=== PATIENT | male | born 1975 | race Two or more races ===

== ENCOUNTER → 2021-04-20 19:24 | Outpatient (CLI) | payer SELFPAY | PROVIDERS: Visit Provider Nurse Practitioner Family | DX: Z20.822 Contact with and (suspected) exposure to COVID-19 (principal) | CPT/HCPCS: U0003 ==

== ENCOUNTER → 2022-01-14 10:59 | Outpatient (CLI) | payer SELFPAY ==
--- NOTE | 2022-01-14 11:02 | US_ITS ---
FINAL REPORT CLINICAL HISTORY: DISORDER OF PITUITARY GLAND,HYPOTHYROIDISM FINDINGS: THYROID ULTRASOUND Sonographic images of the thyroid was obtained. The right lobe of the thyroid measures 4.3 x 2.7 x 1.2 cm. The left lobe of the thyroid measures 4.1 x 1.7 x 1.3 cm. The isthmus measures 4 mm. There are tiny solid and hypoechoic appearing nodules bilaterally: Largest nodule is in the right mid lobe measuring 6 x 6 x 4 mm, TI-RADS 4. There is a 2nd right lobe nodule measuring 7 x 5 x 2 mm, TI-RADS 4. There is a left lobe nodule measuring 3 x 3 x 2 mm, TI-RADS 4. IMPRESSION: TI-RADS 4 lesions less than 1 cm. No follow-up is required. Reviewed, Interpreted and Dictated by Shankar Montilla MD Transcribed by Farrah Livingston Authenticated by Shankar Montilla MD on 01/14/2022 02:58:15 PM [facility]
== END ==
PROVIDERS: PCP Nurse Practitioner Family; Visit Provider Nurse Practitioner Family
DX: E02 Subclinical iodine-deficiency hypothyroidism (principal); R76.0 Raised antibody titer
CPT/HCPCS: 76536

== ENCOUNTER → 2022-04-12 08:49 | Outpatient (CLI) | payer SELFPAY ==
--- NOTE | 2022-04-12 08:57 | MR_ITS ---
FINAL REPORT CLINICAL HISTORY: HEADACHE/DIZZINESS. TINNITUS WITH FEELING LIKE HES GOING TO PASS OUT. DIZZINESS [id number] BUT WORSE [id number]. OCCIPITAL HEAD NUMBNESS. HEADACHE. FINDINGS: Multiplanar MR imaging of the brain was performed without contrast. There is no evidence of intracranial hemorrhage or mass. The ventricular size is normal. There is no evidence of shift of the midline structures. No area of restricted diffusion is identified. The posterior fossa and brainstem have an unremarkable appearance. Normal major vessel vascular flow voids are seen. Limited images of the paranasal sinuses reveal mucosal thickening throughout consistent with widespread sinusitis. IMPRESSION: Unremarkable brain with no focal abnormality identified. Findings consistent with widespread sinusitis. Reviewed, Interpreted and Dictated by Manuel Crabtree III, MD Transcribed by Francheska Ramos Authenticated by Manuel Crabtree III, MD on 04/12/2022 10:54:29 AM [facility]
== END ==
PROVIDERS: PCP Nurse Practitioner Family; Visit Provider Nurse Practitioner Family
DX: R51.9 Headache, unspecified (principal); R42 Dizziness and giddiness
CPT/HCPCS: 70551

== ENCOUNTER 2022-04-16 21:44 | Emergency (ER) | payer OTHER, SELFPAY ==
[2022-04-16 21:46] VITALS: BP 132/82; PULSE 80; RESP 18; TEMP 36.8; O2SAT 96; BMI 32.2
--- NOTE | 2022-04-16 22:08 | XR_ITS ---
PROCEDURE INFORMATION: Exam: XR Left Hand Exam date and time: 04/16/2022 10:13 PM Age: 47 years old Clinical indication: Injury or trauma; Other: Screw into middle left finger. Work related; Puncture; Patient HX: Screw driven into middle finger. ; Additional info: Injury to second digit TECHNIQUE: Imaging protocol: XR Left hand. Views: 3 or more views. COMPARISON: No relevant prior studies available. FINDINGS: Bones/joints: No fracture or dislocation. Soft tissues: No radiopaque foreign body or soft tissue gas. IMPRESSION: No acute findings.
--- NOTE | 2022-04-16 22:20 | HMH.EDUPEXT ---
ED Disposition Clinical Impression: Tinnitus of left ear Open wound of finger Qualifiers: Encounter type: initial encounter Qualified Code(s): S61.209A - Unspecified open wound of unspecified finger without damage to nail, initial encounter Disposition: Home, Self-Care Condition on Discharge: Good Instructions: DI for Puncture Wound Additional Instructions: use meds and see pcp for follow up Prescriptions: cephALEXin [cephALEXin 500mg capsule*] 500 mg PO TID #30 cap Transmission Status: Pending to [id number] clindamycin HCL [Clindamycin HCl] 300 mg PO TID #30 cap Transmission Status: Pending to [id number] Referrals: Anne Lazo APRN [Primary Care Provider] - - Critical Care Critical Care Time: No Attestation: On 04/16/22, the high probability of a clinically significant, sudden or life threatening deterioration of the following system(s) required my full and direct attention, intervention and personal management. The time I documented below is in addition to time spent performing reported procedures but includes the following listed in this critical care notation. Medical Decision Making - Medical Records Medical records reviewed: Yes: I reviewed the patient's medical records. - Toby Inquiry Pt receiving controlled substance: No Vital Signs: 04/16/22 21:46 Temperature 98.3 F Temperature Source Oral Pulse Rate [Left] 80 Respiratory Rate 18 Blood Pressure [Right Arm] 132/82 Blood Pressure Mean [Right Arm] 98 02 Sat by Pulse Oximetry 96 Oxygen Delivery Method Room Air - Lab Data Lab results reviewed: Yes: I reviewed the patient's lab results. Orders (Tests/Meds): ORDERS Category Date Time Status XR hand LT min 3V Stat Exams 04/16/22 22:08 Taken - Radiology Data #1 Image(s): Hand Image Reviewed: Yes I have reviewed radiologist's interpretation Preliminary Findings: No Fracture Seen Medical Decision Narrative: will treat with abx at this time and ask pt to see pcp Upper Extremity HPI - General Chief Complaint: Extremity Injury, Upper Stated Complaint: AO 04/16@1300 drilled thur L Index finger Time Seen by Provider: 04/16/22 22:00 Mode of Arrival: Ambulatory Source of Information: Patient, Medical Record Limitations: No Limitations Description of Symptoms (Recalled from ER Triage Doc. by RN): pt drilled a screw through the tip of his left second digit pt called his dr and was directed to get a tetanus shot at [facility] pt states the screw didnt hit his bone but has been having throbbing pain in the finger 05/03 and 08/03 when it his something - History of Present Illness HPI narrative: drilled screw into distal fingernail about 10 hrs ago with local pain - middle finger - also for 4 months had lt ear tinnitus and dizzyness -has been seen at - nonspecific w/u complaint: injury to: left, finger Onset (ago): hour(s) Other Extremity Injury: Left: fingers Other injuries: none Handedness: right Place: work Context: other (drilled screw in to distal finger ) Associated symptoms: denies other symptoms - Related Data Previous Rx's Medication Instructions Recorded albuterol sulfate 90 mcg/actuation 2 puff INHALATION Q6H PRN 30 Days 04/20/21 aerosol inhaler #6.7 g prednisone 20 mg tablet 20 mg PO BID 5 Days #10 tab 04/20/21 cephALEXin [cephALEXin 500mg 500 mg PO TID #30 cap 04/16/22 capsule*] clindamycin HCL [Clindamycin HCl] 300 mg PO TID #30 cap 04/16/22 Allergies Allergy/AdvReac Type Severity Reaction Status Date / Time No Known Allergies Allergy Verified 04/20/21 15:22 [facility] History - Hepatitis A Screen Attestation statement:: This patient has been screened for Hepatitis A risk factors. I have reviewed the patient's past medical history: Yes Other Medical History: Reports: Arthritis Other Surgeries: Yes: No Previous Surgery, Other Amputation: No Fractures: No Comment: Back surgery - Social History Smoking S
--- NOTE | 2022-04-16 22:57 | PC.NURSE ---
Pt finger cleaned and wrapped
[2022-04-16 23:00] VITALS: BP 121/74; PULSE 79; RESP 18; TEMP 36.8; O2SAT 97
== END 2022-04-16 23:01 | disposition home or self-care (01) ==
PROVIDERS: Emergency Provider Emergency Medicine; PCP Nurse Practitioner Family
DX: S61.209A Unspecified open wound of unspecified finger without damage to nail, initial encounter (principal); H93.12 Tinnitus, left ear; M19.90 Unspecified osteoarthritis, unspecified site
CPT/HCPCS: 73130; 99283

== ENCOUNTER 2022-08-27 12:13 | Emergency (ER) | payer OTHER, SELFPAY ==
[2022-08-27 12:15] VITALS: BP 130/76; PULSE 84; RESP 16; TEMP 36.6; O2SAT 98; BMI 35.5
--- NOTE | 2022-08-27 12:27 | XR_ITS ---
FINAL REPORT CLINICAL HISTORY: dizziness COMPARISON: January 22, 2017 FINDINGS: A single portable view of the chest was obtained. The heart size and pulmonary vascularity are within normal limits. The mediastinum is within normal limits. No acute pulmonary abnormality is identified. The bony thorax is intact. IMPRESSION: No active cardiopulmonary disease. Reviewed, Interpreted and Dictated by Manuel Crabtree III, MD Transcribed by Farrah Livingston Authenticated and . [facility]
[2022-08-27 12:48] LABS: Microscopic, Urine URINE MICROSCOPIC (MICROSCOPIC)
--- NOTE | 2022-08-27 12:48 | ECG_ITS ---
APPROVED REPORT Exam: Resting ECG HR:67 bpm ECG Measurements Heart Rate 67 AXES FL 147 P 26 QRSd 116 QRS 13 QT 389 T 30 QTc 404 Conclusion SINUS RHYTHM INCOMPLETE RIGHT BUNDLE BRANCH BLOCK [90+ ms QRS DURATION, TERMINAL R IN V1/V2, 40+ ms S IN I/aVL/V4/V5/V6] NONSPECIFIC ST ELEVATION [0.05+ mV ST ELEVATION] BORDERLINE ECG UNCONFIRMED REPORT Electronically signed by : Dave Kidd MD 08/27/2022 19:57:49
[2022-08-27 12:49] LABS: Appearance,Urine CLEAR (Clear); Bilirubin,Urine Negative (Negative); Blood, Urine TRACE-L (Negative); Color,Urine YELLOW (Yellow); Glucose,Urine (UA) Negative (Negative); Ketones,Urine Negative (Negative); Leukocyte Esterase,Urine Negative (Negative); Nitrate,Urine Negative (Negative); PH,Urine 6.5 (5.0-8.5); Protein,Urine Negative (Negative); Urobilinogen,Urine 0.2 EU/dl (0.2)
[2022-08-27 12:51] LABS: Basophils # 0.1 K/mm3 (0-0.2); Basophils % 1.8 % (0.1-2.0); Eosinophils # 0.2 K/mm3 (0.0-0.4); Eosinophils % 3.8 % (0.1-12.0); Hematocrit 48.7 % (42.0-52.0); Hemoglobin 16.2 g/dL (14.1-18.0); Lymphocytes # 2.1 K/mm3 (0.7-4.5); Lymphocytes % 32.7 % (10-50); Mean Corpuscular HGB Conc 33.3 g/dL (31.8-35.4); Mean Corpuscular Hemoglobin 30.3 pg (27.0-31.2); Mean Corpuscular Volume 90.8 fl (80-94); Mean Platelet Volume 8.4 fl (7.4-10.4); Monocytes # 0.3 K/mm3 (0.1-1.0); Monocytes % 5.1 % (1.7-9.3); Neutrophils # 3.7 K/mm3 (1.8-7.8); Neutrophils % 56.7 % (37.0-80.0); Platelet Count 261 K/mm3 (142-424); Red Blood Count 5.36 M/mm3 (4.60-6.20); Red Cell Distribution Width 13.2 % (11.5-17.5); White Blood Count 6.5 K/mm3 (4.8-10.8)
--- NOTE | 2022-08-27 12:55 | PC.NURSE ---
pt up ambulatory to bathroom pt unsteady gait.
[2022-08-27 13:02] LABS: Bacteria,Urine Trace /lpf; RBC,Urine Occasional #/hpf (0-3)
[2022-08-27 13:03] LABS: Squamous Epithelial Cell,Urine Occasional #/hpf (0-5)
[2022-08-27 13:04] LABS: Alanine Aminotransferase 45 U/L (12-78); Albumin Level 4.4 g/dl (3.5-5.0); Albumin/Globulin Ratio 1.4 (1.1-1.8); Alkaline Phosphatase 81 U/L (38-126); Anion Gap 15.8 mEq/L (5-15); Aspartate Amino Transferase 44 U/L (17-59); Bilirubin,Total 0.3 mg/dl (0.2-1.3); Blood Urea Nitrogen 9 mg/dl (9-20); Calcium 8.3 mg/dl (8.4-10.2); Carbon Dioxide 25 mmol/L (22.0-30.0); Chloride 101 mmol/L (98-107); Creatinine Clearance Estimated 157 mL/min (50-200); Estimated Glomerular Filt Rate 121 ml/min (>60); GFR (African American) 146 ML/MIN (>60); Globulin 3.1 g/dL (1.3-3.2); Glucose 120 mg/dl (74-100); Potassium 3.8 mmoL/L (3.5-5.1); Sodium 138 mmol/L (136-145); Total Protein,Serum 7.5 g/dl (6.3-8.2)
--- NOTE | 2022-08-27 13:05 | PC.NURSE ---
pt given warm blanket
--- NOTE | 2022-08-27 13:06 | PC.NURSE ---
rounded on pt no needs at this time
[2022-08-27 13:17] LABS: Troponin I < 0.01 ng/ml (0.00-0.034)
--- NOTE | 2022-08-27 13:49 | HMH.EDGENADL ---
Discharge Plan Disposition Patient Disposition: Home, Self-Care Condition: Good Prescriptions Prescriptions: New meclizine 25 mg tablet 25 mg PO TID PRN (Reason: Vertigo) Qty: 15 0RF Referrals Follow up/Referrals: Anne Lazo APRN [Primary Care Provider] - See instructions Dede Griffin MD [Staff Physician] - See instructions Activity Restrictions/Add. Instructions Additional Instructions/Restrictions: Meclizine as prescribed. Avoid eucalyptus tea. Follow-up with neurology, Dr. Griffin, call for appointment. Clinical Impressions Clinical Impression: Dizziness Instructions Patient Instructions: DI for Dizziness-Nonvertigo Discharge ED Provider: Thien Palma General Adult HPI General Chief complaint: Weakness Stated complaint: dizzy, [place], back pain Time Seen by Provider: 08/27/22 13:46 Mode of Arrival: Ambulatory Source of Information: Patient Limitations: No Limitations Description of Symptoms (Recalled from ER Triage Doc. by RN): to ed per pvt car with c/o headache x 4-5 days, lower back pain starting lastnight and c/o dizziness room spinning x 4-5 days with hx of same x 1 year has been seen multiple times at ed and seen by specialist for vertigo approx 3-4 months ago. pt denies fever. c/o difficulty ambulating due to dizziness History of Present Illness HPI narrative: Patient complains of dizziness. He describes feeling like the room is spinning and feeling like he is going to go down whenever he stands up. He has had symptoms like this ever since last year. He states he has seen his primary care provider and has been referred to [facility] where he has seen a specialist for dizziness. Testing has been negative. He has been referred to a neurologist but cannot get an appointment till December 2022. Symptoms now are the same as what he has had previously. His symptoms were associated with an occipital headache and ringing in the ears. He thinks he has been treated with meclizine in the past, he does not recall whether it helped, it has been 5 months ago or so He is also concerned because last evening he had 2 cups of eucalyptus tea. A tea made with eucalyptus leaves obtained at a [employer] grocery. He says he is read on the Internet where this can cause you to get sick. He shows me a picture of the bag of tea leaves, which are a label product from a grocery store and are indicated for making eucalyptus tea. He says that thinking back over the past year he thinks that previous episodes of dizziness might have been associated with drinking eucalyptus tea as well. Related Data Previous Rx's Medication Instructions Recorded meclizine 25 mg tablet 25 mg PO TID PRN Vertigo #15 tabs 08/27/22 Allergies Allergy/AdvReac Type Severity Reaction Status Date / Time No Known Allergies Allergy Verified 04/20/21 15:22 PFSH PFSH Social History Smoking Status: Never smoker alcohol intake: never substance use type: denies use current occupational status: employed Travel in the last 8 weeks: None household members: family housing: house ROS Obtained: Yes Systems reviewed as appropriate & no additional complaints except as documented Constitutional Constitutional: Denies fever(s), Reports headache(s) and Denies weakness ENT Ears, Nose, Mouth, and Throat: Reports dizziness, Reports headache(s), Reports tinnitus and Reports vertigo Cardiovascular Cardiovascular: Denies chest pain Respiratory Respiratory: Denies shortness of breath and Denies cough Gastrointestinal Gastrointestingal: Denies abdominal pain, constipation, diarrhea or vomiting Genitourinary Male Genitourinary: Denies difficulty urinating and Denies flank pain Musculoskeletal Musculoskeletal: Reports back pain and Denies numbness Neurologic Neurologic: Reports dizziness, Reports headache(s), Denies numbness, Reports vertigo and Denies weakness Physical Exam General General appearance: alert and in
[2022-08-27 14:15] VITALS: BP 118/65; PULSE 68; RESP 16; TEMP 36.6; O2SAT 98
[2022-08-27 14:19] LABS: Coronavirus 19, PCR Not Detected (NotDetected); Influenza A, PCR Not Detected (NotDetected); Influenza B, PCR Not Detected (NotDetected)
== END 2022-08-27 14:27 | disposition home or self-care (01) ==
PROVIDERS: Emergency Provider Emergency Medicine; PCP Nurse Practitioner Family
DX: R42 Dizziness and giddiness (principal); R53.1 Weakness; R51.9 Headache, unspecified; M54.9 Dorsalgia, unspecified
CPT/HCPCS: 71045; 80053; 81001; 84484; 85025; 93005; 96365; 99285; C9803; U0003; U0005

== ENCOUNTER 2022-10-07 03:16 | Emergency (ER) | payer OTHER, SELFPAY ==
[2022-10-07 03:17] VITALS: BP 108/60; PULSE 60; RESP 17; TEMP 36.7; O2SAT 98; BMI 28.7
--- NOTE | 2022-10-07 03:30 | ECG_ITS ---
APPROVED REPORT Exam: Resting ECG HR:51 bpm ECG Measurements Heart Rate 51 AXES [place] 156 P 11 QRSd 118 QRS 33 QT 421 T 19 QTc 397 Conclusion SINUS BRADYCARDIA MODERATE INTRAVENTRICULAR CONDUCTION DELAY [110+ ms QRS DURATION] BORDERLINE ECG UNCONFIRMED REPORT Electronically signed by : Dave Kidd MD 10/07/2022 21:11:05
--- NOTE | 2022-10-07 03:38 | PC.NURSE ---
Dr. Meeks at
[2022-10-07 03:49] VITALS: BMI 29.0
[2022-10-07 03:50] VITALS: BP 115/68; BP 117/77; BP 123/77; PULSE 56; PULSE 60
[2022-10-07 03:57] LABS: Appearance,Urine CLEAR (Clear); Bilirubin,Urine Negative (Negative); Blood, Urine TRACE-I (Negative); Color,Urine YELLOW (Yellow); Glucose,Urine (UA) Negative (Negative); Ketones,Urine Negative (Negative); Leukocyte Esterase,Urine Negative (Negative); Microscopic, Urine URINE MICROSCOPIC (MICROSCOPIC); Nitrate,Urine Negative (Negative); PH,Urine 5.5 (5.0-8.5); Protein,Urine Negative (Negative); Specific Gravity, Urine >= 1.030 (1.005-1.030); Urobilinogen,Urine 0.2 EU/dl (0.2)
[2022-10-07 04:00] LABS: Squamous Epithelial Cell,Urine Occasional #/hpf (0-5)
[2022-10-07 04:01] LABS: Amorphous Sediment,Urine Trace /lpf
[2022-10-07 04:21] LABS: Basophils # 0.1 K/mm3 (0-0.2); Basophils % 1.1 % (0.1-2.0); Eosinophils # 0.3 K/mm3 (0.0-0.4); Eosinophils % 4.4 % (0.1-12.0); Hematocrit 44.8 % (42.0-52.0); Hemoglobin 14.8 g/dL (14.1-18.0); Lymphocytes # 3.2 K/mm3 (0.7-4.5); Lymphocytes % 44.4 % (10-50); Mean Corpuscular Hemoglobin 29.8 pg (27.0-31.2); Mean Corpuscular Volume 90.3 fl (80-94); Mean Platelet Volume 8.7 fl (7.4-10.4); Monocytes # 0.4 K/mm3 (0.1-1.0); Monocytes % 5.9 % (1.7-9.3); Neutrophils # 3.2 K/mm3 (1.8-7.8); Neutrophils % 44.2 % (37.0-80.0); Platelet Count 259 K/mm3 (142-424); Red Blood Count 4.96 M/mm3 (4.60-6.20); Red Cell Distribution Width 13.2 % (11.5-17.5); White Blood Count 7.2 K/mm3 (4.8-10.8)
[2022-10-07 04:34] LABS: Chloride 101 mmol/L (98-107); Sodium 140 mmol/L (136-145)
[2022-10-07 04:35] LABS: Potassium 3.7 mmoL/L (3.5-5.1)
[2022-10-07 04:37] LABS: Alanine Aminotransferase 39 U/L (12-78); Albumin Level 4.4 g/dl (3.5-5.0); Alkaline Phosphatase 72 U/L (38-126); Aspartate Amino Transferase 40 U/L (17-59); Bilirubin,Total 0.3 mg/dl (0.2-1.3); Blood Urea Nitrogen 13 mg/dl (9-20); Creatinine Clearance Estimated 117 mL/min (50-200); Estimated Glomerular Filt Rate 90 ml/min (>60); GFR (African American) 109 ML/MIN (>60)
[2022-10-07 04:38] LABS: Albumin/Globulin Ratio 1.5 (1.1-1.8); Anion Gap 12.7 mEq/L (5-15); Calcium 8.9 mg/dl (8.4-10.2); Carbon Dioxide 30 mmol/L (22.0-30.0); Glucose 96 mg/dl (74-100); Total Protein,Serum 7.4 g/dl (6.3-8.2)
[2022-10-07 04:52] LABS: Troponin I < 0.01 ng/ml (0.00-0.034)
--- NOTE | 2022-10-07 04:58 | PC.NURSE ---
Pt resting in bed. No needs or complaints voiced at this time.
--- NOTE | 2022-10-07 05:25 | HMH.EDDIZZ ---
Discharge Plan Disposition Patient Disposition: Home, Self-Care Prescriptions Prescriptions: No Action meclizine 25 mg tablet 25 mg PO TID PRN (Reason: Vertigo) Qty: 15 0RF Referrals Follow up/Referrals: Anne Lazo APRN [Primary Care Provider] - See instructions Clinical Impressions Clinical Impression: Dizziness Instructions Patient Instructions: Dizziness, Nonvertigo Discharge ED Provider: Jaime Meeksy HPI General Chief Complaint: Dizziness Stated Complaint: Dizzy Time Seen by Provider: 10/07/22 05:25 Mode of Arrival: Family Vehicle Source of Information: Patient and Medical Record Limitations: No Limitations Description of Symptoms (Recalled from ER Triage Doc. by RN): Pt c/o dizziness and nausea. Denies any headache, v/d, or fever. Denies any trauma or falls. Pt stated he wanted to History of Present Illness HPI Narrative: dizzyness assoc with nausea x 1 day with hx of same - no trauma or viral illness and no chest pain MD complaint: dizziness Onset (ago): day(s) Timing: awoke with symptoms Description: lightheadedness History of similar episodes: Yes History of trauma: No Severity: moderate Exacerbating factors: nothing Associated symptoms: denies other symptoms Related Data Previous Rx's Medication Instructions Recorded meclizine 25 mg tablet 25 mg PO TID PRN Vertigo #15 tabs 08/27/22 Allergies Allergy/AdvReac Type Severity Reaction Status Date / Time No Known Allergies Allergy Verified 04/20/21 15:22 PFSH PFSH Social History Smoking Status: Never smoker alcohol intake: never substance use type: denies use current occupational status: employed Travel in the last 8 weeks: None household members: family housing: house ROS Obtained: Yes All systems reviewed & no additional complaints except as documented Physical Exam General General appearance: alert Head Head exam: normocephalic Eye Eye exam: Present PERRL, EOMI and nystagmus ENT ENT exam: Present mucous membranes moist Neck Neck exam: Present trachea midline Respiratory Respiratory exam: Absent respiratory distress Cardiovascular Cardiovascular exam: Present regular rate and systolic murmur Abdominal Exam Abdominal exam: Present soft Extremities Exam Extremities exam: Present full ROM Neurological Exam Neurological exam: Present alert, oriented X3 and CN II-XII intact; Absent motor sensory deficit Psychiatric Psychiatric exam: Present normal affect Skin Skin exam: Absent rash Medical Decision Making Medical Records Medical records reviewed: Yes I reviewed the patient's medical records. Toby Inquiry Pt receiving controlled substance: No Vital Signs: 10/07/22 03:50 10/07/22 03:17 Temperature 98.0 F Temperature Source Oral Pulse Rate [Orthostatic Lying] 56 L Pulse Rate [Orthostatic Sitting] 56 L Pulse Rate [Orthostatic Standing] 60 Pulse Rate [Right] 60 Respiratory Rate 17 Blood Pressure [Orthostatic Lying Right Arm] 115/68 Blood Pressure [Orthostatic Sitting Right Arm] 123/77 Blood Pressure [Orthostatic Standing Right Arm] 117/77 Blood Pressure [Right Arm] 108/60 L Blood Pressure Mean [Right Arm] 76 Blood Pressure Source [Right Arm] Automatic Cuff 02 Sat by Pulse Oximetry 98 Oxygen Delivery Method Room Air Lab Data Lab results reviewed: Yes I reviewed the patient's lab results. Lab Results 10/07/22 03:36: Urine Color Yellow, Urine Appearance Clear, Urine pH 5.5, Ur Specific [place] >= 1.030, Urine Protein Negative, Urine Glucose (UA) Negative, Urine Ketones Negative, Urine Blood Trace-i, Urine Nitrate Negative, Urine Bilirubin Negative, Urine Urobilinogen 0.2, Ur Leukocyte Esterase Negative, Urine RBC 3-5, Ur Squamous Epith Cells Occasional, Amorphous Sediment Trace 10/07/22 04:00: WBC 7.2, RBC 4.96, Hgb 14.8, Hct 44.8, MCV 90.3, MCH 29.8, MCHC 33.0, RDW 13.2, Plt Count 259, MPV 8.7, Neut % (Auto) 44.2, Lymph % (Auto) 44.4, [place] % (Auto) 5.9, Eos %
[2022-10-07 07:05] LABS: Troponin I < 0.01 ng/ml (0.00-0.034)
[2022-10-07 07:14] VITALS: BP 94/62; PULSE 50; RESP 14; TEMP 36.7; O2SAT 93
== END 2022-10-07 07:31 | disposition home or self-care (01) ==
PROVIDERS: Emergency Provider Emergency Medicine; PCP Nurse Practitioner Family
DX: R42 Dizziness and giddiness (principal); R00.1 Bradycardia, unspecified; R11.0 Nausea; R01.1 Cardiac murmur, unspecified
CPT/HCPCS: 80053; 81001; 84484; 85025; 93005; 99284

== ENCOUNTER → 2023-04-10 15:11 | Outpatient (CLI) | payer SELFPAY ==
--- NOTE | 2023-04-10 15:23 | CT_ITS ---
FINAL REPORT TECHNIQUE: Pre-and postcontrast axial CT images of the abdomen and pelvis were obtained. Coronal reformatted images were also obtained and reviewed. This study was performed with techniques to keep radiation doses as low as reasonably achievable (ALARA). Individualized dose reduction techniques using automated exposure control or adjustment of mA and/or kV according to the patient's size were employed. CLINICAL HISTORY: LOWER ABDOMINAL PAIN, states it hurts most when he lays flat on his back. Pelvic area pain. FINDINGS: CT OF THE ABDOMEN AND PELVIS WITH AND WITHOUT CONTRAST Abdomen: There is mild bibasilar atelectasis.. The heart is normal in size. There is mild fatty infiltration of the liver. The gallbladder is partially collapsed with wall thickening as a nonspecific finding. The spleen is unremarkable. No adrenal mass is present. The pancreas has an unremarkable appearance. The kidneys are normal, without evidence of mass or hydronephrosis. The aorta is normal in caliber. There is no free fluid or adenopathy. No mass or abnormal fluid collection is seen. Pelvis: The appendix is normal. There is mild bladder wall thickening, likely inflammatory. No inflammatory process is seen. There is no evidence of mass or adenopathy. There is no evidence of bowel obstruction. Precontrast imaging demonstrates no evidence of nephrolithiasis. There are postoperative changes from fusion of L5-S1. There is mild anterolisthesis of L5 on S1. IMPRESSION: Mild bladder wall thickening, likely inflammatory. Fusion of L5-S1 with mild anterolisthesis of L5 on S1. Reviewed, Interpreted and Dictated by Manuel Crabtree III, MD Transcribed by Lin Spence Authenticated and [facility]
== END ==
PROVIDERS: PCP Nurse Practitioner Family; Visit Provider Nurse Practitioner Family
DX: R10.30 Lower abdominal pain, unspecified (principal)
CPT/HCPCS: 74170; Q9967

== ENCOUNTER 2023-08-28 03:47 | Emergency (ER) | payer SELFPAY ==
[2023-08-28 03:49] VITALS: BP 156/91; PULSE 68; RESP 16; TEMP 36.6; O2SAT 98; BMI 32.1
--- NOTE | 2023-08-28 03:57 | HMH.EDGENADL ---
Discharge Plan Disposition Patient Disposition: Home, Self-Care Prescriptions Prescriptions: New meclizine 25 mg tablet 25 mg PO QID PRN (Reason: dizziness) Qty: 30 0RF ondansetron HCl 4 mg tablet 4 mg PO Q8H PRN (Reason: nausea and vomiting) 5 Days Qty: 30 0RF No Action meclizine 25 mg tablet 25 mg PO TID PRN (Reason: Vertigo) Qty: 15 0RF Referrals Follow up/Referrals: Anne Lazo APRN [Primary Care Provider] - See instructions Activity Restrictions/Add. Instructions Additional Instructions/Restrictions: Please discontinue alcohol, caffeine, nicotine as this could be causing/worsening your symptoms. Recommend restriction of salt as excess salt can potentially worsen the fluid buildup in your ears that we think is causing your problems. Please take Tylenol and ibuprofen as needed for your headache. Please take meclizine and Zofran as needed for nausea vomiting and dizziness. Please follow-up with your primary care provider. Please return to the emergency department if you develop any new or worsening symptoms or become concerned for your health. 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 by RN): pt states he has been dizzy for a week. pt has had episodes of this in the past and seen pcp. History of Present Illness HPI narrative: 48-year-old male presents with intermittent dizziness and tinnitus. He reports that he has had these issues for the last couple of years, they are waxing and waning. He has been evaluated by ENT and neurology including MRI imaging of his brain last year. His work-up has always returned to normal per chart review and per patient. He reports that this most recent bout of vertigo started about a week ago and has been worsening. He reports its associated with ringing in both ears. He denies any significant vomiting, reports no numbness or weakness. No recent trauma. He reports an intermittent posterior headache as well. Related Data Previous Rx's Medication Instructions Recorded meclizine 25 mg tablet 25 mg PO TID PRN Vertigo #15 tabs 08/27/22 meclizine 25 mg tablet 25 mg PO QID PRN dizziness #30 tabs 08/28/23 ondansetron HCl 4 mg tablet 4 mg PO Q8H PRN nausea and 08/28/23 vomiting 5 days #30 tabs Allergies Allergy/AdvReac Type Severity Reaction Status Date / Time No Known Allergies Allergy Verified 04/20/21 15:22 [facility] Disclaimer: The information contained in this section may have been updated after the patient was seen, as this information can be updated by other users. Social History Smoking Status: Never smoker alcohol intake: never substance use type: denies use current occupational status: employed Travel in the last 8 weeks: None household members: family housing: house ROS Obtained: Yes All systems reviewed & no additional complaints except as documented Physical Exam General General appearance: alert and in no apparent distress Head Head exam: atraumatic and normocephalic Eye Eye exam: Present normal appearance, PERRL and EOMI; Absent nystagmus ENT ENT exam: Present normal oropharynx, TM's normal bilaterally and normal external ear exam Neck Neck exam: Present normal inspection and full ROM; Absent tenderness Chest Chest inspection: Present normal inspection and symmetric chest wall rise; Absent tenderness Respiratory Respiratory exam: Present normal lung sounds bilaterally; Absent respiratory distress Cardiovascular Cardiovascular exam: Present regular rate and normal rhythm Abdominal Exam Abdominal exam: Present soft; Absent distention, tenderness or guarding Extremities Exam Extremi
[2023-08-28 04:23] VITALS: BP 122/95; PULSE 86; RESP 18; TEMP 37.1; O2SAT 97
== END 2023-08-28 04:28 | disposition home or self-care (01) ==
PROVIDERS: Emergency Provider Emergency Medicine; PCP Nurse Practitioner Family
DX: H81.03 Meniere's disease, bilateral (principal); H93.13 Tinnitus, bilateral
CPT/HCPCS: 99283